=== PATIENT | female | born 2000 | race Caucasian/White ===

== ENCOUNTER 2024-12-29 08:11 | Emergency (ER) | payer BC ==
[~2024-12-29] VITALS: Ht 157.5 cm; Wt 54.4 kg
[2024-12-29] MEDS ORDERED: ONDANSETRON HCL/PF 4 MG/2 ML VIAL ONE (08:47)
[2024-12-29] MEDS ORDERED: KETOROLAC TROMETHAMINE INJ 30 MG/ML VIAL ONE ×2 (08:47→11:27)
[2024-12-29] MEDS: IV NS 0.9% 500 ML BAG IV ONE (08:51)
[2024-12-29] MEDS: KETOROLAC TROMETHAMINE 15 MG/ML VIAL IV ONE (08:51)
[2024-12-29 08:55] LABS: PLATELET COUNT (AUTO) 282 K/uL (150-450); RED BLOOD CELL COUNT(AUTO) 5.06 MIL/uL (4.0-5.2); RED CELL DISTRIBUTION WIDTH 13.7 % (11.5-15.0); WHITE BLOOD COUNT (AUTO) 12.6 K/uL (4.3-11.0)
[2024-12-29 09:01] LABS: CALCIUM, SERUM 8.9 mg/dL (8.5-10.1); CREATININE 0.8 mg/dL (0.6-1.3); SODIUM SERUM 138.0 mmol/L (136-145); UREA NITROGEN, BLOOD 13.0 mg/dL (7-18)
[2024-12-29 09:07] LABS: ASPARTATE AMINOTRANSFERASE 11.0 U/L (15-37); TOTAL PROTEIN, SERUM 7.8 g/dL (6.4-8.2)
[2024-12-29 09:08] LABS: APPEARANCE,URINE SLIGHTLY CLOUDY (CLEAR); BLOOD, URINE NEGATIVE Ery/uL (NEGATIVE); LEUKOCYTE ESTERASE ,URINE NEGATIVE (NEGATIVE); NITRITE, URINE NEGATIVE (NEGATIVE); UGLUCOSE NEGATIVE (NEGATIVE)
[2024-12-29 09:21] LABS: ADD URINE CULTURE YES
[2024-12-29] MEDS: KETOROLAC TROMETHAMINE INJ 30 MG/ML VIAL IV ONE (11:29)
[2024-12-29] MEDS: ONDANSETRON HCL/PF 4 MG/2 ML VIAL IVP ONE (13:05)
[2024-12-29 13:07] VITALS: BP 111/81; TEMP 97.9; O2SAT 99
== END 2024-12-29 13:08 | disposition home or self-care (01) ==
LOC: ER 08:27
DX: R10.9 Unspecified abdominal pain (principal); R11.0 Nausea; Z88.1 Allergy status to other antibiotic agents
CPT/HCPCS: 99285; 74176; 96374; 76856; 96361; 96376; 85025; 80048; 83690; 80076; 84703; 81001; 36415; J1885 ×2; J2405; J7040; 87086-TC